=== PATIENT | female | born 1960 | race Caucasian/White ===

== ENCOUNTER 2017-06-11 22:26 | Emergency (ER) | payer BC ==
[2017-06-11 22:47] VITALS: BP 142/81
--- NOTE | 2017-06-16 09:29 | ER ---
DATE SEEN: 06/11/2017 TIME SEEN: 2240 hours. 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 She has pain in her right foot for the past week. It is gradually increasing with decrease in range of motion with knife-like sensation intermittently on the dorsum of her foot. She is in and out of the truck all day. PAST MEDICAL HISTORY: Significant for thyroid surgery, cholecystectomy, thyroidectomy surgery done in [place]. The patient is slightly overweight. SOCIAL HISTORY: Nonsmoker. Does not drink alcohol. No diabetes, no heart disease, high blood pressure, asthma, or serious illnesses. ALLERGY: Penicillin, iodine, soap, and sulfa allergy. MEDICATIONS: Lisinopril 10 mg daily. REVIEW OF SYSTEMS: Negative. The patient denies headache, neck stiffness, sore throat, fever, chills, cough, muscle aches, joint aches, neck ache, abdominal discomfort, nausea, vomiting, diarrhea, constipation, blood in her stool, black tarry stools, chest pain, shortness of breath, irregular rhythm, muscle or hip joint discomfort. She denies swelling of right lower extremity. PHYSICAL EXAMINATION: VITAL SIGNS: Blood pressure 142/81, heart rate 72, respirations 17, oxygen saturation 99%, temperature is 36.7 degrees. GENERAL: Very pleasant, happy, sociable woman in no acute distress except for her complaints regarding her foot. HEENT: Negative. LUNGS: Clear to auscultation. NECK: No thyromegaly. Old scars in the neck noted. LUNGS: Clear to auscultation without rales, rhonchi, or wheezes. HEART: Sinus rhythm with no murmur. ABDOMEN: Soft. No guarding. No abdominal discomfort. She has modest increase in abdominal girth. EXTREMITIES: Lower extremities, right lower extremity has mild tenderness at the proximal 5th metatarsal and 2nd mid metatarsal. Range of motion is decreased because of pain. No calcaneofibular ligament discomfort. Mild deltoid and lateral ankle discomfort. No joint instability. No anterior talofibular ligament discomfort. Achilles nontender. Ferguson maneuver negative. LABORATORY DATA: X-ray did not reveal a fracture. ASSESSMENT: Traumatic stress injury to right foot. CAT scan of the right foot did not reveal stress fracture. Reassured the patient. Gradual progressively increase activity as tolerated. Use plain Tylenol and ibuprofen. Follow up with doctor in a week. Use ice packs p.r.n. Also be cautious when getting out of the truck (semi). /[id number] RENNY/ALVINAL
== END 2017-06-11 23:50 | disposition home or self-care (01) ==
LOC: FB.ED 22:26
DX: S89.91XA Unspecified injury of right lower leg, initial encounter (principal); Z88.0 Allergy status to penicillin; Z91.09 Other allergy status, other than to drugs and biological substances; Z90.49 Acquired absence of other specified parts of digestive tract; Z98.890 Other specified postprocedural states; X50.1XXA Overexertion from prolonged static or awkward postures, initial encounter
CPT/HCPCS: 73700-RT; 99283

== ENCOUNTER 2017-07-05 08:54 | Emergency (ER) | payer OTHER, BC ==
[2017-07-05] MEDS ORDERED: Lidocaine 2% with EPINEPHrine 1:100,000 20 ML MDV INFILT ONE (08:55)
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
== END 2017-07-05 11:05 | disposition home or self-care (01) ==
LOC: FB.ED 08:54
DX: S01.01XA Laceration without foreign body of scalp, initial encounter (principal); S16.1XXA Strain of muscle, fascia and tendon at neck level, initial encounter; S40.212A Abrasion of left shoulder, initial encounter; I10 Essential (primary) hypertension; G31.83 Neurocognitive disorder with Lewy bodies; F02.80 Dementia in other diseases classified elsewhere, unspecified severity, without behavioral disturbance, psychotic disturbance, mood disturbance, and anxiety; E66.9 Obesity, unspecified; Z90.49 Acquired absence of other specified parts of digestive tract; Z88.0 Allergy status to penicillin; Z88.2 Allergy status to sulfonamides; Z88.8 Allergy status to other drugs, medicaments and biological substances; Z91.048 Other nonmedicinal substance allergy status; V53.5XXA Driver of pick-up truck or van injured in collision with car, pick-up truck or van in traffic accident, initial encounter; Y92.410 Unspecified street and highway as the place of occurrence of the external cause; Z68.30 Body mass index [BMI] 30.0-30.9, adult
CPT/HCPCS: 12002; 99284